=== PATIENT | female | born 1950 | race Two or more races ===

== ENCOUNTER 2019-02-26 17:19 | Inpatient (IN) | payer MEDICARE, MEDICAID ==
[~2019-02-26] VITALS: Ht 154.9 cm; Wt 63.9 kg
[2019-02-26] MEDS ORDERED: AMLODIPINE BES2.5 MG ORAL (17:31)
[2019-02-26] MEDS ORDERED: LANTUS SOL100 UNIT/1 SUBQ (17:31)
[2019-02-26] MEDS ORDERED: OMEPRAZOLE5 GM MC (17:31)
[2019-02-26] MEDS ORDERED: LISINOPRIL2.5 MG ORAL (17:31)
[2019-02-26] MEDS ORDERED: TRAMADOL HCL50 MG ORAL (17:31)
--- NOTE | 2019-02-26 17:35 | NUR ---
ED Nurse Note: Patient brought in by RA 826 from home c/o coughing, vomiting, feeling sick for 3 days. patient reports she reports tingling on bilateral legs for 3 days. patient is alert awake x3, placed on a wire bound box machine helper, hospital gown.
[2019-02-26 17:58] VITALS: BP 200/60
[2019-02-26] MEDS ORDERED: Morphine Sulfate 4mg/ml Inj (IV USE ONLY) IVP ONE (18:00)
[2019-02-26] MEDS ORDERED: Omnipaque-300 100ml vial INJ PRN (18:00)
[2019-02-26 18:13] LABS: BASOPHILS % (AUTO) 1.6 % (0.0-2.0); HEMATOCRIT 39.2 % (37.0-47.0); HEMOGLOBIN 13.4 G/DL (12.0-16.0); LYMPHOCYTES % (AUTO) 19.1 % (20.0-45.0); MEAN CORPUSCULAR VOLUME 89 FL (80-99); MONOCYTES % (AUTO) 7.8 % (1.0-10.0); NEUTROPHILS % (AUTO) 69.6 % (45.0-75.0); PLATELET COUNT 270 K/UL (150-450); RED BLOOD COUNT 4.39 M/UL (4.20-5.40); RED CELL DISTRIBUTION WIDTH 12.3 % (11.6-14.8); WHITE BLOOD COUNT 8.6 K/UL (4.8-10.8)
[2019-02-26 18:19] LABS: ANION GAP 14 mmol/L (5-15); BLOOD UREA NITROGEN 30 mg/dL (7-18); CALCIUM 9.5 MG/DL (8.5-10.1); CARBON DIOXIDE 29 MMOL/L (21-32); CHLORIDE 94 MMOL/L (98-107); CREATININE 2.9 MG/DL (0.55-1.30); POTASSIUM 3.8 MMOL/L (3.5-5.1); SODIUM 136 MMOL/L (136-145)
[2019-02-26 18:23] LABS: ALANINE AMINOTRANSFERASE 17 U/L (12-78); ALBUMIN 3.8 G/DL (3.4-5.0); ALBUMIN/GLOBULIN RATIO 0.7 (1.0-2.7); ALKALINE PHOSPHATASE 184 U/L (46-116); ASPARTATE AMINO TRANSFERASE 18 U/L (15-37); BILIRUBIN,TOTAL 0.4 MG/DL (0.2-1.0)
--- NOTE | 2019-02-26 19:01 | NUR ---
ED Nurse Note: patient came back from CT scan
--- NOTE | 2019-02-26 19:02 | NUR ---
ED Nurse Note: DR Jha stated it's ok not to collect urine sample at this time, endorsed to Bessie ROSEN.
--- NOTE | 2019-02-26 19:02 | NUR ---
HAND-OFF: Report given to Bessie ROSEN.
--- NOTE | 2019-02-26 19:03 | NUR ---
ED Nurse Note: report received from SILAS Middleton. pt is in bed, VSS
--- NOTE | 2019-02-26 19:12 | Diagnostic Imaging Report ---
Indication: Abdominal pain and vomiting Technique: Spiral acquisitions obtained through the abdomen and pelvis. No oral contrast utilized, per emergency room physician request No IV contrast utilized, per referring physician request.. Multiplanar reconstructions were generated. Total dose length product 919 mGycm. CTDIvol(s) 17 mGy. Dose reduction achieved using automated exposure control Comparison: None Findings: Normal appendix. No evidence of colonic diverticulosis or diverticulitis. No small bowel distention. No free or loculated intraperitoneal gas or fluid is evident. There is a small sliding-type hiatal hernia. The distal esophagus, stomach, duodenum are otherwise unremarkable. Lack of IV contrast limits assessment of the solid organs. The liver is unremarkable. The gallbladder contains multiple gallstones. No biliary ductal dilatation. The pancreas is somewhat atrophic. The spleen,, adrenals are unremarkable. The kidneys are somewhat atrophic. There is nonspecific bilateral perinephric fat stranding. There is evidence of some scarring in the left kidney. Metallic opacities adjacent to the right kidney could indicate vascular embolization coils. Some dystrophic calcifications are seen in the left renal parenchyma. There is an exophytic calcified nodule coming off of the lower pole of the left kidney. No retroperitoneal or mesenteric mass or adenopathy. No pelvic mass or adenopathy. Normal uterus and adnexal structures. Unremarkable bladder. The included lung bases demonstrate some dependent atelectatic changes. Incompletely united subacute/old right sixth and seventh rib fractures are incidentally noted. Bones demonstrate degenerative spondylosis changes as well. Impression: No acute abnormality Colonic diverticulosis. 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 The CT scanner at [facility] is accredited by the [employer] and the scans are performed using protocols designed to limit radiation exposure to as low as reasonably achievable to attain images of sufficient resolution adequate for diagnostic evaluation.
--- NOTE | 2019-02-26 20:34 | Emergency Room Report ---
History of Present Illness General Chief Complaint: Chest Pain Source: Patient Present Illness HPI 68-year-old female presenting with nausea vomiting chest pain tingling to her bilateral legs. It all started about 3 days ago. Says it got worse after she went to dialysis today. Several episodes of nonbilious nonbloody vomiting. She is passing gas but says that she has not passed stool in 2 days. Also complaining of generalized abdominal pain in addition to her chest pain. No history of any cardiac stents in the past does not know when her last stress test or angiogram was Allergies: Coded Allergies: No Known Allergies (Unverified , 02/26/19) Patient History Past Medical History: see triage record Past Surgical History: none Pertinent Family History: none Reviewed Nursing Documentation: PMH: Agreed; PSxH: Agreed Nursing Documentation-PMH Past Medical History: No History, Except For Hx Hypertension: Yes Hx Diabetes: Yes Hx Dialysis: Yes Hx Cerebrovascular Accident: Yes Review of Systems All Other Systems: negative except mentioned in HPI Physical Exam Vital Signs Date Time Temp Pulse Resp B/P (MAP) Pulse Ox O2 Delivery O2 Flow Rate FiO2 02/26/19 17:26 99.0 82 16 140/70 (93) 98 Room Air Sp02 EP Interpretation: reviewed, normal General Appearance: alert, GCS 15, non-toxic, moderate distress Head: normocephalic, atraumatic Eyes: bilateral eye normal inspection, bilateral eye PERRL, bilateral eye EOMI ENT: normal ENT inspection, normal pharynx, normal voice, moist mucus membranes Neck: normal inspection, full range of motion, supple Respiratory: normal inspection, lungs clear, normal breath sounds, no respiratory distress, no retraction, no wheezing, speaking full sentences, chest symmetrical Cardiovascular #1: normal inspection, regular rate, rhythm, no edema, normal capillary refill Cardiovascular #2: 2+ radial (R), 2+ radial (L) Gastrointestinal: other - Generalized abdominal pain, not peritoneal no rigidity. Normal bowel sounds auscultated Musculoskeletal: normal inspection, back normal, normal range of motion, non- tender Neurologic: normal inspection, alert, oriented x3, responsive, motor strength/ tone normal, sensory intact, normal gait, speech normal Psychiatric: normal inspection, judgement/insight normal, memory normal Medical Decision Making Diagnostic Impression: Primary Impression: Chest pain Additional Impression: Nausea & vomiting ER Course 68-year-old female presenting with nausea vomiting, chest pain, abdominal pain DDX: Dehydration, electrolyte disturbance, small bowel obstruction, ACS, URI, pneumonia, biliary colic Plan: Obtain labs, ua, EKG, CXR CT abdomen pelvis ER course: Patient has been monitored during ED stay, HD stable Needs to feel very nauseous, despite giving Zofran. Still complaining of generalized abdominal pain Disposition: Patient is to be admitted to telemetry D/W hospitalist DR MCINTYRE Please note that this Emergency Department Report was dictated using optionsXpressdirector style technology software, occasionally this can lead to erroneous entry secondary to interpretation by the dictation equipment. EKG Diagnostic Results EP Interpretation: Yes Rate: normal Rhythm: NSR ST Segments: No acute changes ASA given to patient: No Rhythm Strip EP Interpretation: Yes Rate: 80 Rhythm: NSR, no PVCs, no ectopy Chest X-ray CXR: Ordered: Yes 1 view Indication: Chest pain EP interpretation: Yes Interpretation: No consolidation, no effusion, no PTX, no acute cardiopulmonary disease Impression: No acute disease Electronically signed by Lissette Jha MD Laboratory Tests Test 02/26/19 17:45 White Blood Count 8.6 K/UL (4.8-10.8) Red Blood Count 4.39 M/UL (4.20-5.40) Hemoglobin 13.4 G/DL (12.0-16.0) Hematocrit 39.2 % (37.0-47.0) Mean Corpuscular Volume 89 FL (80-99) Mean Corpuscular Hemoglobin 30.6 PG (27.0-31.0) Mean Corpuscular Hemoglobin Concent 34.2 G/DL (32.0-36.0) Red Cell Distribution Width 12.3 % (11.6-14.8) Platelet Count 270 K/UL (150-450) Mean Platelet Volume 6.1 FL (6.5-10.1) L Neutrophils (%) (Auto) 69.6 % (45.0-75.0) Lymphocytes (%) (Auto) 19.1 % (20.0-45.0) L Monocytes (%) (Auto) 7.8 % (1.0-10.0) Eosinophils (%) (Auto) 2.0 % (0.0-3.0) Basophils (%) (Auto) 1.6 % (0.0-2.0) Sodium Level 136 MMOL/L (136-145) Potassium Level 3.8 MMOL/L (3.5-5.1) Chloride Level 94 MMOL/L (98-107) L Carbon Dioxide Level 29 MMOL/L (21-32) Anion Gap 14 mmol/L (5-15) Blood Urea Nitrogen 30 mg/dL (7-18) H Creatinine 2.9 MG/DL (0.55-1.30) H Estimate Glomerular Filtration Rate 16.1 mL/min (>60) Glucose Level 235 MG/DL (74-106) H Calcium Level 9.5 MG/DL (8.5-10.1) Total Bilirubin 0.4 MG/DL (0.2-1.0) Aspartate Amino Transferase (AST) 18 U/L (15-37) Alanine Aminotransferase (ALT) 17 U/L (12-78) Alkaline Phosphatase 184 U/L (46-116) H Troponin I 0.003 ng/mL (0.000-0.056) Total Protein 9.2 G/DL (6.4-8.2) H Albumin 3.8 G/DL (3.4-5.0) Globulin 5.4 g/dL Albumin/Globulin Ratio 0.7 (1.0-2.7) L Lipase 240 U/L (73-393) CT/MRI/US Diagnostic Results CT/MRI/US Diagnostic Results : Imaging Test Ordered: CT ABD PELVIS Impression No acute process along the GI tract. Mild colonic diverticulosis without diverticulitis. Normal appendix. Cholelithiasis without cholecystitis. Small sliding hiatal hernia. Diffuse cortical thinning in the kidneys with relative sparing of the left renal midpole. Consider outpatient renal ultrasound as an underlying mass cannot be excluded on this noncontrast exam. Last Vital Signs Date Time Temp Pulse Resp B/P (MAP) Pulse Ox O2 Delivery O2 Flow Rate FiO2 02/26/19 18:40 99.0 02/26/19 17:58 74 16 200/60 100 Room Air Disposition: ADMITTED INPATIENT Condition: Serious Referrals: NON PHYSICIAN (PCP) Lissette Jha M.D. Feb 26, 2019 20:34
[2019-02-26 21:05] VITALS: BP 185/55
--- NOTE | 2019-02-26 21:29 | NUR ---
ED Nurse Note: pt was talem up to telemetry floor room 203 accompanied by RN and earth science laboratory technician in stable condition via gurney with monitor box. Belonging list signed off. report given to SILAS alex.
[2019-02-26 21:33] VITALS: BP 168/58
--- NOTE | 2019-02-26 21:33 | NUR ---
NURSE NOTES: Received report from SILAS Hardin. Patient was transferred from ED to telemetry via gurney without any incident. Patient is awake, able to make needs known with assistance. Primarily Wallisian speaking. Denies pain at this time. No signs of acute distress noted. Patient was put on tele bow, SR on the monitor, 65 bpm. Checked IV site and flushed. No erythema, bleeding or infiltration noted. With AV shunt at left upper arm. Body assessment done with no skin issues. Belongings list checked with transferring RN. Bed at lowest position, brakes on, siderails x2. Call light within reach. Will continue to monitor. Addendum: 02/27/19 at 0736 by Roma Medina RN With AV shunt at left upper arm for hemodialysis.
--- NOTE | 2019-02-26 22:30 | NUR ---
NURSE NOTES: Admitting orders verified with Dr. Kwan. Noted and carried out.
--- NOTE | 2019-02-26 23:45 | History and Physical Report ---
DATE OF ADMISSION: 02/26/2019 REASON FOR ADMISSION: Chest pain following hemodialysis accompanied by nausea and vomiting. HISTORY OF PRESENT ILLNESS: The patient is a 68-year-old female with end-stage renal disease on hemodialysis. She has had several days of nausea, vomiting, and chest discomfort with tingling and numbness of her legs bilaterally. She notes the symptoms have been on and off for three days. She has been vomiting nonbilious and nonbloody material. She has been passing gas but has been constipated for two days and has had some general abdominal discomfort. There is no prior known history of heart attack. She has been compliant with her medications. She has been compliant with her dialysis session. She notes that her symptoms got worse after dialysis today. MEDICATIONS: Reviewed and reconciled. ALLERGIES: None known. PAST MEDICAL HISTORY: Includes hypertension, insulin-requiring diabetes mellitus, gastroesophageal reflux disease, end-stage renal disease. FAMILY HISTORY: Noncontributory. SOCIAL HISTORY: Negative for smoking, alcohol, or substance abuse. REVIEW OF SYSTEMS: There is no history of seizure or stroke. No history of thyroid impairment. She is on insulin for her diabetes. She is unaware of her lipid parameters. She does have hypertension and takes medications regularly. She denies any known history of heart attack, rheumatic heart disease, irregular heartbeats, or endocarditis. She is unaware of any prior heart tests that she has had. This is no history of asthma or abnormal blood clotting. She does have a history of gallstones and diverticular disease. PHYSICAL EXAMINATION: VITAL SIGNS: Blood pressure 140/70, pulse 82, respiratory rate 16, temperature 99. HEENT: Conjunctiva pink. Oropharynx clear. NECK: Supple. Jugular venous pressure normal. LUNGS: Clear. CARDIAC: Regular rhythm and rate. Normal S1, S2 with a fourth heart sound. ABDOMEN: Soft. Mild diffuse tenderness. No guarding or rebound. EXTREMITIES: No edema. NEUROLOGIC: Nonfocal. LABORATORY AND DIAGNOSTIC DATA: CAT scan of the abdomen notable for cholelithiasis with no signs of cholecystitis, diverticulosis with no signs of diverticulitis. Sodium 136, potassium 3.8, chloride 94, bicarb 29, BUN 30, creatinine 2.9, glucose 235. Troponin negative. Albumin is 3.8. White count is 8.6, hemoglobin 13.4. IMPRESSION: This is a 68-year-old female with end-stage renal disease on hemodialysis. She has had several days of nonspecific GI symptoms as well as chest pain but does not have any features suggesting acute ischemia. She does not have any signs of toxicity other than a low-grade temperature of 99, no signs of acute infection. Lipase is normal. Despite her gallstones, there is no evidence of acute cholecystitis either clinically or radiographically. RECOMMENDATION: 1. nurse monitoring cautiously and cautious oral intake. Hydration to replace fluid losses. 2. Renal consult for hemodialysis. 3. Titrate antihypertensives. 4. Followup troponin level. 5. Antireflux and H2 adelaide therapy. 6. Insulin coverage by sliding scale and resumption of long-acting insulin once oral intake resumes without the absence of vomiting. 7. Continued symptoms may warrant HIDA scan. Galen Kwan M.D. DR: Pablo JOB#: [id number] CC:
[2019-02-27] VITALS: BP 152/71
--- NOTE | 2019-02-27 01:52 | NUR ---
NURSE NOTES: Resting throughout the night. No significant change of condition noted. Will continue to monitor.
[2019-02-27 04:00] VITALS: BP 155/60
--- NOTE | 2019-02-27 05:15 | NUR ---
NURSE NOTES: Patient complained of coughing, nonproductive and is requesting for cough medication. Respiration is even, unlabored and with clear breath sounds. Paged Dr. Kwan's office and spoke with Dr. Pastrana. Per Dr. Pastrana to give robitussin syrup 5ml PRN for cough. Noted and carried out.
[2019-02-27] MEDS: Guaifenesin/DM 10ml syrup ORAL PRN ×2 (05:29→14:32)
[2019-02-27] MEDS: NovoLOG Insulin Flexpen SUBQ SCH ×4 (05:31→21:00)
[2019-02-27] MEDS ORDERED: NovoLOG Insulin Flexpen SUBQ SCH (06:30)
--- NOTE | 2019-02-27 07:30 | NUR ---
HAND-OFF: Report given to SILAS Morgan. Plan of care endorsed.
[2019-02-27 07:32] LABS: ANION GAP 8 mmol/L (5-15); BLOOD UREA NITROGEN 37 mg/dL (7-18); CALCIUM 8.7 MG/DL (8.5-10.1); CARBON DIOXIDE 30 MMOL/L (21-32); CHLORIDE 99 MMOL/L (98-107); CHOLESTEROL 136 MG/DL (< 200); CREATININE 3.4 MG/DL (0.55-1.30); HDL CHOLESTEROL 36 MG/DL (40-60); POTASSIUM 4.9 MMOL/L (3.5-5.1); SODIUM 137 MMOL/L (136-145); TRIGLYCERIDES 146 MG/DL (30-150)
[2019-02-27 08:00] VITALS: BP 179/81
[2019-02-27] MEDS: Docusate 100mg cap ORAL SCH ×2 (08:21→17:33)
[2019-02-27] MEDS: Heparin 5000 units/ml inj SUBQ SCH ×2 (08:27→21:24)
[2019-02-27] MEDS: traMADol 50mg tab ORAL PRN ×2 (08:28→14:33)
[2019-02-27] MEDS: Levemir Flexpen SUBQ SCH ×2 (10:31→21:00)
[2019-02-27 12:00] VITALS: BP 150/72
--- NOTE | 2019-02-27 12:16 | Diagnostic Imaging Report ---
Indication: Chest pain Technique: One view of the chest Comparison: None Findings: Body habitus limits evaluation. The heart is borderline enlarged. There is right lateral pleural thickening. There is equivocal mild interstitial congestion. No focal airspace consolidation. No definite effusions Impression: Borderline cardiomegaly Equivocal mild interstitial congestion Right lateral pleural thickening, etiology/significance uncertain
--- NOTE | 2019-02-27 13:30 | Consultation ---
Consult Note Consult Note asked to eval for dialysis management 68-year-old female presenting with nausea vomiting chest pain tingling to her bilateral legs. It all started about 3 days ago. Says it got worse after she went to dialysis today. Several episodes of nonbilious nonbloody vomiting. She is passing gas but says that she has not passed stool in 2 days. Also complaining of generalized abdominal pain in addition to her chest pain. No history of any cardiac stents in the past does not know when her last stress test or angiogram was No Known Allergies (Unverified , 02/26/19) Past Medical History: No History, Except For Hx Hypertension: Yes Hx Diabetes: Yes Hx Dialysis: Yes Hx Cerebrovascular Accident: Yes examined' data reviewed Assessment/Plan Chest pain but does not have any features suggesting acute ischemia. End-stage renal disease on hemodialysis. HTN DM / ? Gastroparesis Plan Per cardio HD M W Fr PRN meds for high BP Reglan for diabetic gasteroparesis Davis Naylor MD Feb 27, 2019 13:30
[2019-02-27] MEDS ORDERED: Metoclopramide 10mg/2ml Inj IVP PRN ×2 (15:15→15:30)
--- NOTE | 2019-02-27 15:50 | NUR ---
*-* NO INSURANCE INFORMATION IN THE BAR UNABLE TO SEND CLINICALS OR REVIEWS *-*
[2019-02-27 16:00] VITALS: BP 130/54
--- NOTE | 2019-02-27 16:46 | Cardiology Report ---
APPROVED REPORT EKG Measurement Heart [id number] Normal sinus rhythm Possible Anterior infarct, age undetermined Abnormal ECG
--- NOTE | 2019-02-27 19:30 | NUR ---
NURSE NOTES: Received patient from Eddie RN. Patient alert and oriented x3. On room air, no signs of respiratory distress. Bruit and thrill present on NAEEM fistula. NS infusing at 30ml/hr via right forearm 22 gauge. Bed in low position, locked, bed alarm on, call light within reach.
[2019-02-27 20:00] VITALS: BP 135/53
[2019-02-27] MEDS: Pantoprazole Inj IVP SCH (21:18)
[2019-02-28] VITALS (7 sets, daily range): BP systolic 125–179; BP diastolic 53–71
--- NOTE | 2019-02-28 00:28 | NUR ---
NURSE NOTES: BP 179/70, hydralazine 10mg ivp administered.
--- NOTE | 2019-02-28 02:45 | Progress Note ---
DATE: 02/27/2019 INTERNAL MEDICINE AND CARDIOLOGY PROGRESS NOTE SUBJECTIVE: The patient has nausea and vomiting. Still with episodes of labile blood pressure. No fevers or chills. Abdominal pain has decreased. She is yet to have a bowel movement although has passed gas. OBJECTIVE: VITAL SIGNS: Blood pressure 135/53, earlier blood pressure 179/81, heart rate 65, and respiratory rate 18. LUNGS: Clear. CARDIAC: Regular. Normal S1, S2 with a fourth heart sound. ABDOMEN: Distended, but soft. Diffuse mild tenderness. No guarding or rebound. EXTREMITIES: No edema. LABORATORY DATA: Sodium 137, potassium 4.9, bicarb 30, BUN 37, creatinine 3.4, and glucose 110. Troponin negative. Total cholesterol 136. TSH 6.89. IMPRESSION: 1. Nausea, vomiting, and abdominal pain. Etiology remains unclear. Considerations include gastroenteritis, uremic component, hepatobiliary pathology although CAT scan from last night is not suggestive. 2. Hypothyroid state and constipation are noted as well. 3. Insulin-requiring diabetes mellitus with neuropathy. 4. Hypertensive heart disease with labile blood pressure. PLAN: 1. In the setting of end-stage renal disease, recommend anti-emetics and proton pump inhibitor. 2. Titrate antihypertensive therapy. 3. Hemodialysis with ultrafiltration. 4. Thyroid replacement. 5. Insulin titration. Galen Kwan M.D. DR: MISSY JOB#: [id number] CC:
--- NOTE | 2019-02-28 04:30 | NUR ---
NURSE NOTES: Received report from Roshan ROSEN. Pt is AO x4. Calm and comfortable. Instructed to call the nurse w/ call light. No acute distress noted. Call light is within reach. Rails are up x2. bed is locked in the lowest position.
[2019-02-28] MEDS: NovoLOG Insulin Flexpen SUBQ SCH ×4 (06:07→21:08)
[2019-02-28 07:20] LABS: EOSINOPHILS % (AUTO) 4.5 % (0.0-3.0); HEMATOCRIT 38.4 % (37.0-47.0); HEMOGLOBIN 12.4 G/DL (12.0-16.0); LYMPHOCYTES % (AUTO) 42.6 % (20.0-45.0); MEAN CORPUSCULAR VOLUME 92 FL (80-99); MONOCYTES % (AUTO) 12.8 % (1.0-10.0); NEUTROPHILS % (AUTO) 38.1 % (45.0-75.0); PLATELET COUNT 289 K/UL (150-450); RED BLOOD COUNT 4.18 M/UL (4.20-5.40); RED CELL DISTRIBUTION WIDTH 13.4 % (11.6-14.8); WHITE BLOOD COUNT 6.6 K/UL (4.8-10.8)
[2019-02-28] MEDS: traMADol 50mg tab ORAL PRN (07:21)
[2019-02-28 07:39] LABS: ALANINE AMINOTRANSFERASE 12 U/L (12-78); ALBUMIN/GLOBULIN RATIO 0.7 (1.0-2.7); ALKALINE PHOSPHATASE 129 U/L (46-116); ANION GAP 10 mmol/L (5-15); ASPARTATE AMINO TRANSFERASE 20 U/L (15-37); BILIRUBIN,DIRECT < 0.1 MG/DL (0.0-0.3); BILIRUBIN,TOTAL 0.4 MG/DL (0.2-1.0); BLOOD UREA NITROGEN 46 mg/dL (7-18); CARBON DIOXIDE 28 MMOL/L (21-32); CHLORIDE 99 MMOL/L (98-107); CREATININE 4.6 MG/DL (0.55-1.30); POTASSIUM 4.3 MMOL/L (3.5-5.1); SODIUM 137 MMOL/L (136-145)
--- NOTE | 2019-02-28 07:40 | NUR ---
NURSE NOTES: Received report from Vivek ROSEN. Patient alert and oriented x4 and algerian speaking. Patient c/o pain in neck but she took her tramadol 50mg po at 7:21am and explained her to wait toe get the effectiveness from meds. No SOB noted. Will continue to plan of care.
--- NOTE | 2019-02-28 07:56 | NUR ---
HAND-OFF: Report given to Carmen Roman RN.
--- NOTE | 2019-02-28 08:58 | NUR ---
*-* INSURANCE *-* ALL AVAILABLE CLINICALS HAVE BEEN FAXED TO: [facility] NO REF# OR CM ASSIGNED YET PH#[phone] FAX#[phone] REVIEWS/CLINICALS Addendum: 02/28/19 at 1338 by SUDHIR ISAAC CM CALLED [facility] AND SPOKE TO LYDIA WHOM TRANSFERRED ME TO [phone] SPOKE TO RAYRAY AND HE CONFIRMED CLINICALS HAVE BEEN RECEIVED.
[2019-02-28] MEDS: Docusate 100mg cap ORAL SCH ×2 (09:05→17:08)
[2019-02-28] MEDS: Pantoprazole Inj IVP SCH ×2 (09:06→21:04)
[2019-02-28] MEDS: Heparin 5000 units/ml inj SUBQ SCH ×2 (09:09→21:06)
[2019-02-28] MEDS: Levemir Flexpen SUBQ SCH ×2 (09:10→21:07)
--- NOTE | 2019-02-28 10:19 | NUR ---
CASE MANAGEMENT:REVIEW 68 YR OLD FEMALE BIBA FROM HOME CC: COUGHING,VOMITING,SOB, CHEST PAIN AND TINGLING IN BOTH LEGS SI: CHEST PAIN. NAUSEA & VOMITING 99.0 82 16 186/59 98% ON RA BUN+30 CR+2.9 IS: IV ZOFRAN X2 IV PEPCID IV MORPHINE NORVASC PO CT ABD/PELVIS CHEST XRAY : TO TELEMETRY
--- NOTE | 2019-02-28 10:24 | NUR ---
CASE MANAGEMENT:REVIEW 02/28/19 SI: CHEST PAIN. GASTROPARESIS GASTROENTERITIS. ESRD ON HD 97.8 77 18 179/70 93% ON RA BUN+46 CR+4.6 IS: IVF@ 30/HR REGLAN PO TID SYNTHROID PO QD LEVEMIR SQ QHS IV PROTONIX Q12 NORVASC PO BID IV HYDRALAZINE Q4HRS PRN : TELEMETRY STATUS
[2019-02-28] MEDS ORDERED: Sorbitol Solution UD 30ml ORAL SCH (11:15)
--- NOTE | 2019-02-28 11:54 | Nephrology Progress Note ---
Assessment/Plan Problem List: (1) Nausea & vomiting (2) Chest pain (3) ESRD (end stage renal disease) (4) Diabetic gastroparesis Assessment Chest pain but does not have any features suggesting acute ischemia. End-stage renal disease on hemodialysis. HTN DM / ? Gastroparesis Plan Plan Per cardio HD M W Fr PRN meds for high BP Reglan for diabetic gasteroparesis Subjective ROS Limited/Unobtainable: No Constitutional: Reports: malaise, weakness Objective Objective Last 24 Hour Vital Signs Date Time Temp Pulse Resp B/P (MAP) Pulse Ox O2 Delivery O2 Flow Rate FiO2 02/28/19 09:06 77 127/53 02/28/19 09:00 Room Air 02/28/19 08:00 97.8 77 18 127/53 (77) 93 02/28/19 08:00 81 02/28/19 06:04 164/71 02/28/19 04:00 97.4 55 18 164/71 (102) 98 02/28/19 04:00 67 02/28/19 02:08 67 147/53 (84) 02/28/19 00:11 179/70 02/28/19 00:06 179/70 (106) 02/28/19 00:01 97.9 69 21 96 02/28/19 00:00 65 02/27/19 21:00 Room Air 02/27/19 20:00 61 02/27/19 20:00 98.3 65 18 135/53 (80) 96 02/27/19 17:33 71 150/72 02/27/19 16:00 98.1 66 18 130/54 (79) 100 02/27/19 16:00 71 02/27/19 12:00 64 02/27/19 12:00 96.9 72 18 150/72 (98) 100 Intake and Output 02/27/19 02/28/19 18:59 06:59 Intake Total 580 ml 150 ml Balance 580 ml 150 ml Intake Oral 580 ml 150 ml # Voids 2 Laboratory Tests 02/28/19 05:23: White Blood Count 6.6, Red Blood Count 4.18L, Hemoglobin 12.4, Hematocrit 38.4, Mean Corpuscular Volume 92, Mean Corpuscular Hemoglobin 29.8, Mean Corpuscular Hemoglobin Concent 32.4, Red Cell Distribution Width 13.4, Platelet Count 289, Mean Platelet Volume 5.9L, Neutrophils (%) (Auto) 38.1L, Lymphocytes (%) (Auto) 42.6, Monocytes (%) (Auto) 12.8H, Eosinophils (%) (Auto) 4.5H, Basophils (%) ( Auto) 2.0, Sodium Level 137, Potassium Level 4.3, Chloride Level 99, Carbon Dioxide Level 28, Anion Gap 10, Blood Urea Nitrogen 46H, Creatinine 4.6H, Estimat Glomerular Filtration Rate 9.5, Glucose Level 108H, Calcium Level 9.0, Total Bilirubin 0.4, Direct Bilirubin < 0.1, Aspartate Amino Transf (AST/SGOT) 20, Alanine Aminotransferase (ALT/SGPT) 12, Alkaline Phosphatase 129H, Total Protein 7.6, Albumin 3.0L, Globulin 4.6, Albumin/Globulin Ratio 0.7L, Lipase 383 Height (Feet): 5 Height (Inches): 1.00 Weight (Pounds): 150 General Appearance: no apparent distress Cardiovascular: normal rate Respiratory/Chest: decreased breath sounds Abdomen: distended Davis Naylor MD Feb 28, 2019 11:54
[2019-02-28] MEDS ORDERED: Metoclopramide 10mg/2ml Inj IVP SCH (12:00)
[2019-02-28] MEDS ORDERED: Metoclopramide 10mg/2ml Inj IVP PRN (12:00)
--- NOTE | 2019-02-28 13:39 | NUR ---
NURSE NOTES: Per charge nurse, [facility] dialysis center is on suspicion now and unable to come in to [facility] for dialysis for any patients in [facility]
--- NOTE | 2019-02-28 13:39 | NUR ---
NURSE NOTES: Canceled the dialysis to [facility]. [facility] called for scheduling a dialysis for the patient.
--- NOTE | 2019-02-28 19:23 | NUR ---
HAND-OFF: Report given to Linh ROSEN. Pt remains stable.
--- NOTE | 2019-02-28 19:42 | NUR ---
NURSE NOTES: Received report from SILAS Dominguez. Patient is awake and responsive, breathing regular with no distress noted at this time. Patient is receiving dialysis at this time. Patient's IV is intact, running fluids at prescribed rate. Bed is in lowest position, breaks engaged, call light within reach at all times. Will continue to monitor.
--- NOTE | 2019-02-28 20:42 | NUR ---
NURSE NOTES: Patient successfully received dialysis; tolerated well. No adverse reaction noted. Per bridge carpenter, 2L of fluids out.
[2019-02-28] MEDS: Sorbitol Solution UD 30ml ORAL SCH ×2 (21:00→21:05)
--- NOTE | 2019-02-28 21:32 | NUR ---
NURSE NOTES: Per patient, she already had a bowel movement and refuses Sorbitol medication at this time.
--- NOTE | 2019-02-28 22:11 | General Progress Note ---
Assessment/Plan Assessment/Plan: Assessment - Acute N/V x 3 days, ? etiology - Chronic constipation - IDDM - ESRD / HD - cholelithiasis Recommendations - Agree with Reglan / PPI trial - nightly sorbitol - Will consider nuc med gastric emptying study - Doubt gallstone related but can consider HIDA at later date if Sx persist. Subjective Allergies: Coded Allergies: No Known Allergies (Unverified , 02/26/19) Objective Last 24 Hour Vital Signs Date Time Temp Pulse Resp B/P (MAP) Pulse Ox O2 Delivery O2 Flow Rate FiO2 02/28/19 21:00 Room Air 02/28/19 20:00 79 02/28/19 20:00 98.0 80 20 125/63 (83) 94 02/28/19 17:08 80 149/56 02/28/19 16:00 98.2 86 18 149/56 (87) 94 02/28/19 16:00 80 02/28/19 12:00 98.0 89 16 148/60 (89) 94 02/28/19 12:00 86 02/28/19 09:06 77 127/53 02/28/19 09:00 Room Air 02/28/19 08:00 97.8 77 18 127/53 (77) 93 02/28/19 08:00 81 02/28/19 06:04 164/71 02/28/19 04:00 97.4 55 18 164/71 (102) 98 02/28/19 04:00 67 02/28/19 02:08 67 147/53 (84) 02/28/19 00:11 179/70 02/28/19 00:06 179/70 (106) 02/28/19 00:01 97.9 69 21 96 02/28/19 00:00 65 Intake and Output 02/27/19 02/28/19 19:00 07:00 Intake Total 580 ml 390 ml Balance 580 ml 390 ml Intake Oral 580 ml 150 ml IV Total 240 ml # Voids 2 Laboratory Tests 02/28/19 05:23: White Blood Count 6.6, Red Blood Count 4.18L, Hemoglobin 12.4, Hematocrit 38.4, Mean Corpuscular Volume 92, Mean Corpuscular Hemoglobin 29.8, Mean Corpuscular Hemoglobin Concent 32.4, Red Cell Distribution Width 13.4, Platelet Count 289, Mean Platelet Volume 5.9L, Neutrophils (%) (Auto) 38.1L, Lymphocytes (%) (Auto) 42.6, Monocytes (%) (Auto) 12.8H, Eosinophils (%) (Auto) 4.5H, Basophils (%) ( Auto) 2.0, Sodium Level 137, Potassium Level 4.3, Chloride Level 99, Carbon Dioxide Level 28, Anion Gap 10, Blood Urea Nitrogen 46H, Creatinine 4.6H, Estimat Glomerular Filtration Rate 9.5, Glucose Level 108H, Calcium Level 9.0, Total Bilirubin 0.4, Direct Bilirubin < 0.1, Aspartate Amino Transf (AST/SGOT) 20, Alanine Aminotransferase (ALT/SGPT) 12, Alkaline Phosphatase 129H, Total Protein 7.6, Albumin 3.0L, Globulin 4.6, Albumin/Globulin Ratio 0.7L, Lipase 383 Height (Feet): 5 Height (Inches): 1.00 Weight (Pounds): 150 Naif Olson MD Feb 28, 2019 22:11
--- NOTE | 2019-02-28 22:29 | NUR ---
NURSE NOTES: Spoke to Makeda Mendoza, nursing pile driving supervisor, regarding patient's request for anxiety or sleeping medication since Dr. Kwan's phone number is not picking up. Was told, "he will call you."
--- NOTE | 2019-02-28 22:37 | NUR ---
NURSE NOTES: Received order from Dr. Kwan for Lorazepam 1mg PO QHS PRN for anxiety. Noted and carried out.
[2019-02-28] MEDS ORDERED: LORazepam 1mg tab ORAL PRN (22:45)
--- NOTE | 2019-02-28 23:46 | Progress Note ---
DATE: 02/28/2019 CARDIOLOGY AND INTERNAL MEDICINE PROGRESS NOTE SUBJECTIVE: dialysis with ultrafiltration today. She still has nausea and abdominal pain with very poor appetite and oral intake. No vomiting. OBJECTIVE: VITAL SIGNS: Blood pressure 149/56, pulse 86, and respirations 18. LUNGS: Clear. CARDIAC: Regular. Normal S1 and S2 with a fourth heart sound. ABDOMEN: Soft with no focal distension, guarding, or rebound. No masses . EXTREMITIES: Without edema. LABORATORY DATA: Labs today notable for sodium 137, potassium 4.3, BUN 46, creatinine 4.6, and bicarb 28. Liver function studies within normal limits. Alkaline phosphatase slightly up, it is elevated at 179. Albumin is 3. Lipase is normal. IMPRESSION: 1. End-stage renal disease. 2. Nausea and abdominal pain. 3. Possible gastric paresis due to diabetes mellitus. 4. Hypothyroidism. 5. Insulin-requiring diabetes mellitus with neuropathy. 6. Hypertension with hypertensive heart disease. PLAN: 1. Hemodialysis with ultrafiltration. 2. Antiemetics and motility agents. 3. Await GI evaluation. 4. Protein supplement for mild protein-calorie malnutrition. Galen Kwan M.D. DR: MISSY JOB#: [id number] CC:
[2019-03-01] VITALS: BP 144/65
[2019-03-01 04:00] VITALS: BP 136/67
--- NOTE | 2019-03-01 05:30 | Consultation ---
DATE OF CONSULTATION: 02/28/2019 GASTROENTEROLOGY CONSULTATION CONSULTING PHYSICIAN: Naif Olson M.D. CHIEF COMPLAINT: I was asked to see this patient by Dr. Galen Kwan for evaluation of vomiting. HISTORY OF PRESENT ILLNESS: The patient is a pleasant 68-year-old woman with a history of renal failure, on dialysis, who came to the hospital with two-day history of nausea and vomiting. The patient also has some swelling of the abdomen, but she does admit to having chronic constipation for several years. She only goes to bathroom perhaps every other day. The patient had swallow endoscopy and colonoscopy perhaps about 10 years ago. She has no hematemesis. The patient noted some chest pain after dialysis and then she was brought to the hospital and was admitted. PAST MEDICAL HISTORY: Includes hypertension, insulin-dependent diabetes, gastroesophageal reflux, and renal failure. ALLERGIES: None. FAMILY HISTORY: Noncontributory. SOCIAL HISTORY: The patient does not smoke or drink alcohol. REVIEW OF SYSTEMS: Otherwise negative. PHYSICAL EXAMINATION: GENERAL: This is a pleasant woman, seen in her room. HEENT: Normocephalic and atraumatic. Sclerae are anicteric. Oropharynx is clear. NECK: Supple. CHEST: Clear to auscultation. CARDIOVASCULAR: Revealed a regular rate. ABDOMEN: Soft and mildly tender diffusely, but perhaps more so in the lower quadrants. There is no guarding or rebound. No masses. EXTREMITIES: Revealed no edema. LABORATORY DATA: Laboratory data were noted. ASSESSMENT: This patient presents with some acute symptoms of nausea and vomiting for the past two days. This may be due to gastroenteritis, which should be brief in duration. Alternatively, she may have more of a long-term form of diabetic gastroparesis. The patient has gallstones on her CT scan, but I doubt this is cholecystitis based on her symptoms, medications for pain. The patient can be given a trial of proton pump inhibitor and this is written, which is reasonable. Should her symptoms persist, then need to have gastric emptying study can be done to evaluate her gastric emptying. Ultimately, she will also have HIDA scan to evaluate gallbladder. RECOMMENDATIONS: Per above discussion and per orders written in the chart. Thank you for asking me to participate in care this patient. Naif Olson M.D. DR: THANG JOB#: [id number] CC: ROB
[2019-03-01] MEDS: NovoLOG Insulin Flexpen SUBQ SCH ×2 (06:17→12:12)
[2019-03-01 07:15] LABS: BASOPHILS % (AUTO) 1.6 % (0.0-2.0); EOSINOPHILS % (AUTO) 2.4 % (0.0-3.0); HEMATOCRIT 34.3 % (37.0-47.0); HEMOGLOBIN 11.3 G/DL (12.0-16.0); LYMPHOCYTES % (AUTO) 33.8 % (20.0-45.0); MEAN CORPUSCULAR VOLUME 91 FL (80-99); MONOCYTES % (AUTO) 14.2 % (1.0-10.0); NEUTROPHILS % (AUTO) 47.9 % (45.0-75.0); PLATELET COUNT 267 K/UL (150-450); RED BLOOD COUNT 3.77 M/UL (4.20-5.40); RED CELL DISTRIBUTION WIDTH 13.4 % (11.6-14.8); WHITE BLOOD COUNT 6.9 K/UL (4.8-10.8)
--- NOTE | 2019-03-01 07:33 | NUR ---
HAND-OFF: Report given to SILAS Briseno. Plan of care endorsed, patient is in stable condition.
--- NOTE | 2019-03-01 07:35 | NUR ---
NURSE NOTES: Received report from Isamar /RN, Patient is asleep, lying semi-pate's, resting comfortably. A/O x4. On room air, breathing even and unlabored. No acute distress/SOB noted at this time. Able to make needs known. IV site patent, no bleeding or infiltration noted. Encourage to use call light when needed. Bed in low position and locked, bed alarm engaged, side-rails up x3. Call light within reach. Will continue plan of care.
[2019-03-01 08:00] VITALS: BP 154/47
--- NOTE | 2019-03-01 08:31 | NUR ---
DISCHARGE PLANNING PATIENT IS MANAGED BY [facility] PATIENT IS DIALYZED AT: [facility] T: [phone] M-W-[id number] *PATIENT HAS A RENAL DIETITIAN LADI CONAWY T: [phone] DISCHARGE PLAN IS TO RETURN HOME AND CONTINUE WITH OUTPATIENT DIALYSIS
--- NOTE | 2019-03-01 08:34 | NUR ---
CASE MANAGEMENT:REVIEW 03/01/19 SI: CHEST PAIN. GASTROPARESIS GASTROENTERITIS. ESRD ON HD STILL WITH NAUSEA AND ABDOMINAL PAIN 98.2 81 18 136/67 97% ON RA H/H-11.3/34.3 BUN+46 CR+4.6 BNP+[id number] IS: IVF@ 30/HR REGLAN PO TID SYNTHROID PO QD LEVEMIR SQ QHS IV PROTONIX Q12 NORVASC PO BID SORBITOL PO QHS IV HYDRALAZINE Q4HRS PRN : TELEMETRY STATUS DCP: FROM HOME PLAN: DIALYZED YESTERDAY OUT PATIENT DIALYSIS MWF AT [facility]
[2019-03-01] MEDS: Docusate 100mg cap ORAL SCH (08:43)
[2019-03-01] MEDS: Pantoprazole Inj IVP SCH (08:44)
[2019-03-01] MEDS: Heparin 5000 units/ml inj SUBQ SCH (08:51)
[2019-03-01] MEDS: Levemir Flexpen SUBQ SCH (08:55)
--- NOTE | 2019-03-01 09:12 | NUR ---
RD ASSESSMENT & RECOMMENDATIONS SEE CARE ACTIVITY FOR COMPLETE ASSESSMENT DAILY ESTIMATED NEEDS: Needs based on ESRD on Hd, overweight 51.7kg adj 25-30 kcals/kg 9057-6212 total kcals 1.2-1.8 g protein/kg 62-93 g total protein Fluid per MD, on HD NUTRITION DIAGNOSIS: Increased kcal and pro needs r/t ESRD as evidenced by pt on dialysis CURRENT DIET: Renal/ CCHO MED soft PO DIET RECOMMENDATIONS: Renal/ [place] diet ADDITIONAL RECOMMENDATIONS: 1) With poor po intake rec to liberalize diet to Renal Add CCHO LOW w/ improved po intake and increase in BG 2) Obtain a standing scale wt for eval 3) For possible DM gastroparesis, rec 5 low fiber small meals/day
--- NOTE | 2019-03-01 10:37 | Nephrology Progress Note ---
Assessment/Plan Problem List: (1) Nausea & vomiting (2) Chest pain (3) ESRD (end stage renal disease) (4) Diabetic gastroparesis Assessment Chest pain but does not have any features suggesting acute ischemia. End-stage renal disease on hemodialysis. HTN DM / ? Gastroparesis Plan Plan Per cardio HD M W Fr PRN meds for high BP Reglan for diabetic gasteroparesis Subjective ROS Limited/Unobtainable: No Constitutional: Reports: malaise Objective Objective Last 24 Hour Vital Signs Date Time Temp Pulse Resp B/P (MAP) Pulse Ox O2 Delivery O2 Flow Rate FiO2 03/01/19 09:00 Room Air 03/01/19 08:44 77 154/47 03/01/19 08:00 98.1 77 19 154/47 (82) 94 03/01/19 08:00 80 03/01/19 04:00 98.2 81 18 136/67 (90) 97 03/01/19 04:00 79 03/01/19 00:00 80 03/01/19 00:00 98.0 74 18 144/65 (91) 95 02/28/19 21:00 Room Air 02/28/19 20:00 79 02/28/19 20:00 98.0 80 20 125/63 (83) 94 02/28/19 17:08 80 149/56 02/28/19 16:00 98.2 86 18 149/56 (87) 94 02/28/19 16:00 80 02/28/19 12:00 98.0 89 16 148/60 (89) 94 02/28/19 12:00 86 Intake and Output 02/28/19 03/01/19 18:59 06:59 Intake Total 570 ml 468 ml Balance 570 ml 468 ml Intake Oral 120 ml IV Total 570 ml 348 ml # Voids 1 Laboratory Tests 03/01/19 05:32: White Blood Count 6.9, Red Blood Count 3.77L, Hemoglobin 11.3L, Hematocrit 34.3L , Mean Corpuscular Volume 91, Mean Corpuscular Hemoglobin 29.8, Mean Corpuscular Hemoglobin Concent 32.9, Red Cell Distribution Width 13.4, Platelet Count 267, Mean Platelet Volume 5.9L, Neutrophils (%) (Auto) 47.9, Lymphocytes ( %) (Auto) 33.8, Monocytes (%) (Auto) 14.2H, Eosinophils (%) (Auto) 2.4, Basophils (%) (Auto) 1.6, Pro-B-Type Natriuretic Peptide 13561T Height (Feet): 5 Height (Inches): 1.00 Weight (Pounds): 140 General Appearance: no apparent distress Objective no change Davis Naylor MD Mar 01, 2019 10:37
--- NOTE | 2019-03-01 11:41 | General Progress Note ---
Assessment/Plan Assessment/Plan: Assessment - Acute N/V x 3 days - resolved, possibly gastroparesis - Chronic constipation - IDDM - ESRD / HD - cholelithiasis Recommendations - Continue Reglan / PPI trial - nightly sorbitol - Further w/u if symptoms return Subjective Allergies: Coded Allergies: No Known Allergies (Unverified , 02/26/19) Subjective Feels better no N?V tolerating PO wants to go home Objective Last 24 Hour Vital Signs Date Time Temp Pulse Resp B/P (MAP) Pulse Ox O2 Delivery O2 Flow Rate FiO2 03/01/19 09:00 Room Air 03/01/19 08:44 77 154/47 03/01/19 08:00 98.1 77 19 154/47 (82) 94 03/01/19 08:00 80 03/01/19 04:00 98.2 81 18 136/67 (90) 97 03/01/19 04:00 79 03/01/19 00:00 80 03/01/19 00:00 98.0 74 18 144/65 (91) 95 02/28/19 21:00 Room Air 02/28/19 20:00 79 02/28/19 20:00 98.0 80 20 125/63 (83) 94 02/28/19 17:08 80 149/56 02/28/19 16:00 98.2 86 18 149/56 (87) 94 02/28/19 16:00 80 02/28/19 12:00 98.0 89 16 148/60 (89) 94 02/28/19 12:00 86 Intake and Output 02/28/19 03/01/19 18:59 06:59 Intake Total 570 ml 468 ml Balance 570 ml 468 ml Intake Oral 120 ml IV Total 570 ml 348 ml # Voids 1 Laboratory Tests 03/01/19 05:32: White Blood Count 6.9, Red Blood Count 3.77L, Hemoglobin 11.3L, Hematocrit 34.3L , Mean Corpuscular Volume 91, Mean Corpuscular Hemoglobin 29.8, Mean Corpuscular Hemoglobin Concent 32.9, Red Cell Distribution Width 13.4, Platelet Count 267, Mean Platelet Volume 5.9L, Neutrophils (%) (Auto) 47.9, Lymphocytes ( %) (Auto) 33.8, Monocytes (%) (Auto) 14.2H, Eosinophils (%) (Auto) 2.4, Basophils (%) (Auto) 1.6, Pro-B-Type Natriuretic Peptide 45095T Height (Feet): 5 Height (Inches): 1.00 Weight (Pounds): 140 Objective WDWN NCAT supple CTA RR Abd soft NT Obese no edema Naif Olson MD Mar 01, 2019 11:41
[2019-03-01 12:00] VITALS: BP 158/66
[2019-03-01] MEDS ORDERED: SORBITOL 70%30 ML ORAL (12:46)
[2019-03-01] MEDS ORDERED: METOCLOPRAMIDE H5 M1 ORAL (12:51)
[2019-03-01] MEDS ORDERED: PROTONIX40 MG ORAL (12:52)
[2019-03-01] MEDS ORDERED: LEVOTHYROXINE75 MCG ORAL (12:53)
[2019-03-01] MEDS ORDERED: LEVOTHYROXINE200 MCG PO (12:57)
[2019-03-01] MEDS ORDERED: LEVOTHYROXINE100 MC1 PO (12:58)
[2019-03-01] MEDS ORDERED: Docusate 100mg cap ORAL SCH (13:00)
--- NOTE | 2019-03-01 14:35 | NUR ---
NURSE NOTES: Discharge instruction given to patient, verbalized understanding. cdl a driver and IV removed, No distress or bleeding noted. Vital signs are within normal limit. Patient is in stable condition.Paper work signed by patient. All belonging and prescription given to patient. Escorted by CHEMICAL PATHOLOGIST via Wheelchair and patient left via taxi.
--- NOTE | 2019-03-01 15:54 | NUR ---
*-* INSURANCE *-* ALL AVAILABLE CLINICALS HAVE BEEN FAXED TO: [facility] NO REF# OR CM ASSIGNED YET #[phone] FAX#[phone] REVIEWS/CLINICALS
[2019-03-01] MEDS ORDERED: Sorbitol Solution UD 30ml ORAL SCH (21:00)
--- NOTE | 2019-03-02 00:30 | Progress Note ---
DATE: 03/01/2019 CARDIOLOGY AND INTERNAL MEDICINE PROGRESS NOTE SUBJECTIVE: The patient has less abdominal pain. She is tolerating a diet, but still has some nausea and does not like the food here and has a poor appetite. She had hemodialysis with ultrafiltration last night. She did have a bowel movement. OBJECTIVE: VITAL SIGNS: Blood pressure 154/47, pulse 77, respirations 19, and afebrile. LUNGS: Clear. CARDIAC: Regular. Normal S1, S2 with a fourth heart sound. ABDOMEN: Soft. No focal tenderness, guarding, or rebound. No distention. EXTREMITIES: Without edema. LABORATORY DATA: White count 6.9 and hemoglobin 11.3. Natriuretic peptide 12,000. IMPRESSION AND PLAN: 1. Gastrointestinal symptomatology included nausea, vomiting, and pain likely due to constipation. 2. Diabetic neuropathy and gastroparesis. At this time, she has improved and she was advised to continue her current bowel regimen including sorbitol daily. 3. End-stage renal disease. She will remain on hemodialysis per usual schedule as an outpatient. 4. Acute on chronic diastolic congestive heart failure, compensated clinically and managed with ultrafiltration. 5. Mild protein-calorie malnutrition, anticipated improvement once her oral intake advances. 6. Hypothyroidism. She has been started on thyroid replacement and was advised to continue with followup TSH in 3 months' time. 7. Hypertension with elevated blood pressure. She will have further titration of her antihypertensives as an outpatient by her primary marker assembler. 8. Disposition home today with follow-up confirmed with her primary physician and marker assembler. Galen Kwan M.D. DR: MISSY JOB#: [id number] CC:
--- NOTE | 2019-03-02 07:40 | Discharge Summary ---
Discharge Summary Discharge Summary _ DATE OF ADMISSION: 02/26/2019 DATE OF DISCHARGE: 03/01/2019 DISCHARGED BY: Dr. Kwan REASON FOR ADMISSION: 68 years old female with past medical history of hypertension, diabetes mellitus , end-stage renal disease, on hemodialysis, history of CVA, presented with chief complaint of nausea, vomiting, chest pain, and tingling in bilateral lower extremity. Symptoms started 3 days ago. Symptoms worsened after dialysis . Patient reported several episodes of nonbloody nonbilious emesis. She did not have stool for two days, but reported passing gas. Patient was complaining of generalized abdominal pain in addition to chest pain. Upon evaluation vital signs were stable. Laboratory work-up revealed no leukocytosis, hemoglobin 13.4, hematocrit 39.2. Stable electrolytes. BUN 30, creatinine 2.9. Glucose 235. Troponin - 0.003.EKG revealed normal sinus rhythm, no acute ischemic changes. Stable LFT and lipase. Chest x-ray revealed no acute cardiopulmonary pathology. CT of the abdomen and pelvis revealed no acute process of the GI tract. Mild colonic diverticulosis without diverticulitis. Normal appendix. Cholelithiasis without cholecystitis. Small sliding hiatal hernia. Patient received antiemetic and analgesic in ED , but still complained of nausea and generalized abdominal pain Patient subsequently admitted to telemetry floor for further management. CONSULTANTS: GI specialist Dr. Olson typing office worker Dr. Naylor [facility] COURSE: Patient admitted to telemetry floor. Serial troponin were negative. EKG revealed no acute ischemic changes. Patient was ruled out for acute myocardial infarction. Lipid panel was stable. Biologist Aide follow for hemodialysis. GI specialist consulted. Blood pressure was managed with calcium channel adelaide and hydralazine was on board as needed Blood pressure appeared to be labile. Antihypertensive titrated. Patient will need further titration of antihypertensive as outpatient by her primary typing office worker to keep blood pressure under control. Congestive heart failure, acute on chronic , was managed with ultrafiltration and appeared to be compensated. TSH noted to be elevated. Patient started on levothyroxine. Repeat TSH in 1 month. Blood sugar was managed with long-acting Levemir and siding scale of insulin was used as needed. Hemodialysis provided per typing office worker with close monitoring of volumes , renal parameters and electrolytes. Electrolytes corrected as needed. GI specialist followed. Patient was treated symptomatically for nausea and vomiting. Pain management was addressed. Bowel regimen instituted. GI prophylaxis provided. Patient had bowel movements. Patient clinically improved. No further nausea and vomiting. Symptoms were probably due to constipation, and possibly due to gastroparesis as well as per GI specialist. Patient clinically stabilized and was ready for discharge home. FINAL DIAGNOSES: Nausea and vomiting- resolved, probably due to constipation , possibly due to gastroparesis Chronic constipation Gastroparesis End-stage renal disease, on hemodialysis Insulin-dependent diabetes mellitus Diabetic neuropathy Acute on chronic diastolic congestive heart failure Mild protein calorie malnutrition Hypothyroidism , newly diagnosed Hypertensive heart disease with labile blood pressure DISCHARGE MEDICATIONS: See Medication Reconciliation list. DISCHARGE INSTRUCTIONS: Patient was discharged home . Follow up with primary care provider in one week. Follow-up with outpatient hemodialysis as scheduled Continue bowel regimen as prescribed at home I have been assigned to dictate discharge summary for this account. I was not involved in the patient's management . Rose Lentz NP Mar 02, 2019 07:40
--- NOTE | 2019-03-02 13:29 | NUR ---
*-* INSURANCE *-* DISCHARGE SUMMARY HAS BEEN FAXED TO: [facility] NO REF# OR CM ASSIGNED YET #[phone] FAX#[phone] REVIEWS/CLINICALS
--- NOTE | 2019-03-05 10:54 | Cardiology Report ---
APPROVED REPORT EXAM: Two-dimensional and M-mode echocardiogram with Doppler and color Doppler. INDICATION HYPERTENSIVE HEART DIS M-Mode DIMENSIONS IVSd0.6 (0.7-1.1cm)Left Atrium (MM)4.3 (1.6-4.0cm) LVDd6.1 (3.5-5.6cm)Aortic Root2.2 (2.0-3.7cm) PWd0.8 (0.7-1.1cm)Aortic Cusp Exc.1.5 (1.5-2.0cm) IVSs0.8 cm LVDs1.1 (2.5-4.0cm) PWs4.2 cm Technically difficult study due to poor acoustical windows. Normal left ventricular chamber size, systolic function and normal wall motion to extent visualized. Left ventricular ejection fraction estimated to be 60 %. Mild left ventricular hypertrophy. Anterior Echo-free space, may be due to pericardial fat or effusion. All other cardiac chamber sizes are within normal limits. Focal aortic valve sclerosis with adequate cusp excursion. Thickened mitral valve leaflets with normal excursion. Mitral annulus and aortic root calcification. Normal pulmonic valve structure. Normal tricuspid valve structure. IVC at normal size with physiologic collapse. A color flow and spectral Doppler study was performed and revealed: No aortic insufficiency. Trace mitral regurgitation. Mitral diastolic velocities suggest reduced left ventricular relaxation c/w mild LV diastolic dysfunction (Grade I ) Mild tricuspid regurgitation. Tricuspid systolic velocities suggests peak right ventricular systolic pressure of 15 mmHg.
== END 2019-03-01 14:45 | disposition home or self-care (01) | DRG 73 ==
LOC: EDBD 17:19 → EMR 17:50 → 2E 19:19 → EDBEDREQ 20:33 → SDSOVERFLO 02-27 10:38 → 2E 02-27 10:39
PROC: 5A1D70Z Performance of Urinary Filtration, Intermittent, Less than 6 Hours Per Day (ICD-10-PCS; principal; 2019-02-28)
DX: E11.43 Type 2 diabetes mellitus with diabetic autonomic (poly)neuropathy (principal); N18.6 End stage renal disease; I50.33 Acute on chronic diastolic (congestive) heart failure; I13.2 Hypertensive heart and chronic kidney disease with heart failure and with stage 5 chronic kidney disease, or end stage renal disease; E44.1 Mild protein-calorie malnutrition; R07.9 Chest pain, unspecified; K31.84 Gastroparesis; K59.09 Other constipation; K57.90 Diverticulosis of intestine, part unspecified, without perforation or abscess without bleeding; E11.22 Type 2 diabetes mellitus with diabetic chronic kidney disease; Z99.2 Dependence on renal dialysis; Z79.4 Long term (current) use of insulin; E03.9 Hypothyroidism, unspecified; K21.9 Gastro-esophageal reflux disease without esophagitis
CPT/HCPCS: 36415; 71045; 74176; 80048; 80053; 80061; 82248; 82962; 83690; 83880; 84443; 84484; 85025; 87081; 93005; 93306; 96374; 96375; 99285; J1815; J2405; J2765; J7030; S5561

== ENCOUNTER 2020-01-30 19:29 | Emergency (ER) | payer MEDICARE, MEDICAID ==
[~2020-01-30] VITALS: Ht 157.5 cm; Wt 63.5 kg
[~2020-01-30 19:29] MED LIST: AMLODIPINE BES2.5 MG ORAL; LANTUS SOL100 UNIT/1 SUBQ; LEVOTHYROXINE100 MC1 PO; LEVOTHYROXINE200 MCG PO; LEVOTHYROXINE75 MCG ORAL; LISINOPRIL2.5 MG ORAL; METOCLOPRAMIDE H5 M1 ORAL; OMEPRAZOLE5 GM MC; PROTONIX40 MG ORAL; SORBITOL 70%30 ML ORAL; TRAMADOL HCL50 MG ORAL
[2020-01-30 20:02] LABS: BASOPHILS % (AUTO) 1.8 % (0.0-2.0); EOSINOPHILS % (AUTO) 4.2 % (0.0-3.0); HEMATOCRIT 35.3 % (37.0-47.0); LYMPHOCYTES % (AUTO) 24.9 % (20.0-45.0); MEAN CORPUSCULAR VOLUME 95 FL (80-99); MONOCYTES % (AUTO) 11.8 % (1.0-10.0); NEUTROPHILS % (AUTO) 57.3 % (45.0-75.0); PLATELET COUNT 176 K/UL (150-450); RED BLOOD COUNT 3.73 M/UL (4.20-5.40); RED CELL DISTRIBUTION WIDTH 16.1 % (11.6-14.8)
[2020-01-30 20:05] VITALS: BP_SYST 174; BP_DIAS 42; BP_DIAS 74
[2020-01-30 20:13] LABS: CALCIUM 8.6 MG/DL (8.5-10.1); POTASSIUM 4.2 MMOL/L (3.5-5.1)
[2020-01-30 20:18] LABS: ALBUMIN 3.1 G/DL (3.4-5.0); ALBUMIN/GLOBULIN RATIO 0.8 (1.0-2.7); BILIRUBIN,TOTAL 0.3 MG/DL (0.2-1.0)
--- NOTE | 2020-01-30 21:13 | Emergency Room Report ---
History of Present Illness General Chief Complaint: Dyspnea/Respdistress Source: Patient Present Illness HPI Patient states that she has felt short of breath and shaky for the past day. She also states that her blood pressure was elevated. She has a history of end- stage renal disease and gets dialysis Tuesday. She did go to dialysis. She denies recent illness. She denies cough or congestion. She denies fever or chills. She denies nausea or vomiting. She denies abdominal pain. Chest pain. She has no other complaints. 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 COVID-19 Screening: Negative COVID-19 COVID-19 Testing Source: josé 12/30/19 Patient History Past Medical History: see triage record, DM, HTN, renal disease, dialysis Social History: Denies: smoking, alcohol use, drug use Now: No Reviewed Nursing Documentation: PMH: Agreed; PSxH: Agreed Nursing Documentation-PMH Past Medical History: No History, Except For Hx Hypertension: Yes Hx Diabetes: Yes Hx Dialysis: Yes Hx Cerebrovascular Accident: Yes Review of Systems All Other Systems: negative except mentioned in HPI Physical Exam Vital Signs Date Time Temp Pulse Resp B/P (MAP) Pulse Ox O2 Delivery O2 Flow Rate FiO2 01/30/20 19:30 99.0 63 22 190/100 (130) 100 Room Air Sp02 EP Interpretation: reviewed, normal General Appearance: no apparent distress, alert, GCS 15, non-toxic Head: normocephalic, atraumatic Eyes: bilateral eye normal inspection, bilateral eye PERRL ENT: hearing grossly normal, normal pharynx, no angioedema, normal voice Neck: normal inspection, full range of motion Respiratory: chest non-tender, lungs clear, normal breath sounds, no respiratory distress, no retraction, no accessory muscle use, speaking full sentences Cardiovascular #1: regular rate, rhythm, no edema Gastrointestinal: normal bowel sounds, non tender, soft, non-distended, no guarding, no rebound Rectal: deferred Musculoskeletal: back normal, normal range of motion, other - Ortho shoe on L. foot/Dressed great toe. Neurologic: alert, motor strength/tone normal, oriented x3, sensory intact, responsive, speech normal Psychiatric: judgement/insight normal, memory normal, mood/affect normal, no suicidal/homicidal ideation Skin: no rash, normal color Medical Decision Making Diagnostic Impression: Primary Impression: Hyperglycemia Additional Impressions: Hypertension Dietary noncompliance ER Course Overall, this patient's evaluation was benign. The patient was hypertensive on arrival. Her blood pressure slowly declined spontaneously. He remained in the 170s systolic. I did go ahead and give a dose of oral hydralazine. The patient later admitted to eating a piece of cake for her grandchild's birthday libertarian today. That would explain why the patient's blood sugar was elevated to 377. Further, the patient stated that prior to coming to the emergency department she did give herself 10 units of insulin. I suspect the patient's blood sugar was significantly higher than this earlier today which was likely the etiology of her symptoms. I also suspect the patient has been noncompliant with her medication regimen. She stated that she took her metoprolol a couple hours prior to her arrival in the emergency department also. I suspect the patient skipped her medications today. She was given insulin subcutaneously and given oral hydralazine. I offered admission for this patient, however, she declined stating that she has an appointment with the greenhouse specialist for her chronic diabetic foot ulcer on her foot. She was educated on the importance of diet compliance and medication compliance. She is given close return precautions and follow-up instructions. Laboratory Tests Test 01/30/20 19:50 White Blood Count 6.0 K/UL (4.8-10.8) Red Blood Count 3.73 M/UL (4.20-5.40) L Hemoglobin 11.0 G/DL (12.0-16.0) L Hematocrit 35.3 % (37.0-47.0) L Mean Corpuscular Volume 95 FL (80-99) Mean Corpuscular Hemoglobin 29.5 PG (27.0-31.0) Mean Corpuscular Hemoglobin Concent 31.2 G/DL (32.0-36.0) L Red Cell Distribution Width 16.1 % (11.6-14.8) H Platelet Count 176 K/UL (150-450) Mean Platelet Volume 7.2 FL (6.5-10.1) Neutrophils (%) (Auto) 57.3 % (45.0-75.0) Lymphocytes (%) (Auto) 24.9 % (20.0-45.0) Monocytes (%) (Auto) 11.8 % (1.0-10.0) H Eosinophils (%) (Auto) 4.2 % (0.0-3.0) H Basophils (%) (Auto) 1.8 % (0.0-2.0) Sodium Level 132 MMOL/L (136-145) L Potassium Level 4.2 MMOL/L (3.5-5.1) Chloride Level 97 MMOL/L (98-107) L Carbon Dioxide Level 29 MMOL/L (21-32) Anion Gap 6 mmol/L (5-15) Blood Urea Nitrogen 38 mg/dL (7-18) H Creatinine 3.0 MG/DL (0.55-1.30) H Estimated Glomerular Filtration Rate 15.5 mL/min (>60) Glucose Level 377 MG/DL (74-106) H Calcium Level 8.6 MG/DL (8.5-10.1) Total Bilirubin 0.3 MG/DL (0.2-1.0) Aspartate Amino Transferase (AST) 27 U/L (15-37) Alanine Aminotransferase (ALT) 23 U/L (12-78) Alkaline Phosphatase 182 U/L (46-116) H Troponin I 0.017 ng/mL (0.000-0.056) Total Protein 6.8 G/DL (6.4-8.2) Albumin 3.1 G/DL (3.4-5.0) L Globulin 3.7 g/dL Albumin/Globulin Ratio 0.8 (1.0-2.7) L Microbiology Date/Time Source Procedure Growth Status 01/30/20 20:02 Nasopharynx SARS-CoV-2 RdRp Gene Assay - Final Complete EKG Diagnostic Results Rate: normal Rhythm: NSR ST Segments: no acute changes Rhythm Strip Diag. Results EP Interpretation: yes Rate: 60's Rhythm: NSR, no PVC's, no ectopy Chest X-Ray Diagnostic Results Chest X-Ray Diagnostic Results : Chest X-Ray Ordered: Yes # of Views/Limited/Complete: 1 View Indication: Shortness of Breath EP Interpretation: Yes Interpretation: no consolidation, no effusion, no pneumothorax, no acute cardiopulmonary disease Impression: No acute disease Electronically Signed by: Radha Riley DO Last Vital Signs Date Time Temp Pulse Resp B/P (MAP) Pulse Ox O2 Delivery O2 Flow Rate FiO2 01/30/20 20:05 99.0 62 22 174/42 100 Room Air Status: improved Disposition: HOME, SELF-CARE Condition: Improved Radha Riley DO Jan 30, 2020 21:13
[2020-01-30] MEDS ORDERED: HydrALAZINE 10mg Tab ORAL ONE (21:15)
[2020-01-30] MEDS ORDERED: Insulin Human Regular 100units/ml 3ml SUBQ ONE (21:15)
[2020-01-30 21:46] VITALS: BP 153/35
[2020-01-30 22:15] VITALS: BP 153/35
--- NOTE | 2020-01-31 12:23 | Diagnostic Imaging Report ---
Indication: Shortness of breath Technique: One view of the chest Comparison: 02/26/2019 Findings: Heart is enlarged. Lungs pleural spaces are clear. No significant change Impression: Cardiomegaly No acute process
--- NOTE | 2020-01-31 17:35 | Cardiology Report ---
APPROVED REPORT EKG Measurement Heart [id number] <Conclusion> Normal sinus rhythm Cannot rule out Anterior infarct, age undetermined Abnormal ECG
== END 2020-01-30 22:15 | disposition home or self-care (01) ==
LOC: EDBD 19:29 → EMR 21:16
DX: E11.65 Type 2 diabetes mellitus with hyperglycemia (principal); E11.22 Type 2 diabetes mellitus with diabetic chronic kidney disease; I12.0 Hypertensive chronic kidney disease with stage 5 chronic kidney disease or end stage renal disease; N18.6 End stage renal disease; Z91.11 Patient's noncompliance with dietary regimen; Z99.2 Dependence on renal dialysis; Z86.73 Personal history of transient ischemic attack (TIA), and cerebral infarction without residual deficits
CPT/HCPCS: 36415; 71045; 80053; 84484; 85025; 93005; 96372; 99284; J1815; U0002